=== PATIENT | female | born 1980 | race Two or more races ===

== ENCOUNTER 2019-07-02 16:25 | Emergency (ER) | payer MEDICAID ==
[~2019-07-02] VITALS: Ht 170.2 cm; Wt 69.2 kg
--- NOTE | 2019-07-02 17:33 | NUR ---
LATE NOTE ENTRY DUE TO PT CARE: Pt presents to ED with c/o sob and "heart fluttering" sternal palpatations continuing with cough that was treated for at urgent care. NADN. Pt connected to NIBP cuff, continous pulse ox, and patient monitor. No needs expressed. Pt speaking in full sentences and maintaining airway. Pt is NSR on patient monitor. Call light within reach.
[2019-07-02 18:12] LABS: BASOPHILS # (AUTO) 0.05 x10^3/uL (0-0.1); BASOPHILS % (AUTO) 1 % (0-1); EOSINOPHILS # (AUTO) 0.07 x10^3/uL (0-0.4); EOSINOPHILS % (AUTO) 1 % (1-7); LYMPHOCYTES # (AUTO) 1.86 x10^3/uL (1-3.4); LYMPHOCYTES % (AUTO) 27 % (22-44); MD NO; MEAN CORPUSCULAR HEMOGLOBIN 30.9 pg (27.0-34.8); MEAN CORPUSCULAR HGB CONC 33.1 g/dL (32.4-35.8); MEAN CORPUSCULAR VOLUME 93.4 fL (80-100); MEAN PLATELET VOLUME 7.9 fL (7.4-10.4); MONOCYTES # (AUTO) 0.56 x10^3/uL (0.2-0.8); MONOCYTES % (AUTO) 8 % (2-9); NEUTROPHILS # (AUTO) 4.38 x10^3/uL (1.8-6.8); NEUTROPHILS % (AUTO) 63 % (42-75); PLATELET COUNT 318 x10^3/uL (130-400); RED BLOOD COUNT 4.35 x10^6/uL (3.82-5.3); RED CELL DISTRIBUTION WIDTH 13.5 % (9.6-15.2)
[2019-07-02 18:25] LABS: ANION GAP 5 mmol/L (5-15); CALCIUM 8.6 mg/dL (8.5-10.1); CHLORIDE 108 mmol/L (98-107); CREATININE 0.63 mg/dL (0.55-1.02)
--- NOTE | 2019-07-02 18:53 | NUR ---
Provided report to SAYRA Tellez. All questions answered. NADN. Geoff RN to assume care of pt at this time.
--- NOTE | 2019-07-02 18:56 | NUR ---
REPORT OF PT FROM SAYRA BRYANT AND ASSUMING CARE OF PT AT THIS TIME.
[2019-07-02 19:04] VITALS: BP 104/72
--- NOTE | 2019-07-02 19:40 | NUR ---
PT D/C WITH D/C SUMMARY. ALL QUESTIONS ANSWERED. PT AMBULATES TO REGISTRATION DESK WITH STEADY GAIT FOR D/C HOME. PT DENIES ANY OTHER NEEDS PERTAINING TO THIS VISIT.
== END 2019-07-02 19:44 | disposition home or self-care (01) ==
LOC: ED 19:05
DX: J20.8 Acute bronchitis due to other specified organisms (principal); J01.10 Acute frontal sinusitis, unspecified; R19.7 Diarrhea, unspecified; J02.9 Acute pharyngitis, unspecified; M79.10 Myalgia, unspecified site; H92.09 Otalgia, unspecified ear; R07.89 Other chest pain
CPT/HCPCS: 36415; 71046; 80048; 85025; 99284